=== PATIENT | female | born 1970 | race Caucasian/White ===

== ENCOUNTER 2022-09-05 21:15 | Emergency (ER) | payer MEDICAID ==
[~2022-09-05] VITALS: Ht 154.9 cm; Wt 69.4 kg
--- NOTE | 2022-09-05 22:14 | NUR ---
BIBSELF FROM HOME C/O VAGINAL BLEEDING ON & OFF FOR 4 MONTHS. RLQ AND LOWER BACK PAIN. -N/V. PT AAOX4, PLACED COMFORTABLY IN BED, VITALS CHECKED.
--- NOTE | 2022-09-05 22:30 | NUR ---
URINE COLLECTED AND SENT TO LAB
--- NOTE | 2022-09-05 22:30 | NUR ---
20G IN LEFT FOREARM ESTABLISHED.
--- NOTE | 2022-09-05 22:40 | NUR ---
TRAINING MGR AT BED SIDE
--- NOTE | 2022-09-05 23:04 | NUR ---
U/S TECH AT BEDSIDE
[2022-09-05 23:07] LABS: BASOPHILS # (AUTO) 0.1 K/uL (0.0-0.2); BASOPHILS % (AUTO) 0.8 % (0.0-2.0); EOSINOPHILS % (AUTO) 3.7 % (0.0-6.0); HEMATOCRIT 34 % (33-45); HEMOGLOBIN 10.7 g/dL (11.5-14.8); LYMPHOCYTES # (AUTO) 3.4 K/uL (0.8-4.8); MEAN CORPUSCULAR HGB CONC 32 g/dl (31.0-36.0); MEAN CORPUSCULAR VOLUME 75 fL (82-100); MONOCYTES # (AUTO) 0.5 K/uL (0.1-1.30); MONOCYTES % (AUTO) 5.7 % (2.0-12.0); NEUTROPHILS # (AUTO) 4.7 K/uL (1.8-8.9); NEUTROPHILS % (AUTO) 51.8 % (43.0-81.0); PLATELET COUNT (AUTO) 401 K/uL (150-450); RED BLOOD CELL COUNT(AUTO) 4.56 MIL/uL (4.0-5.2); WHITE BLOOD COUNT (AUTO) 9.1 K/uL (4.3-11.0)
[2022-09-05 23:13] LABS: BILIRUBIN,URINE NEGATIVE (NEGATIVE); LEUKOCYTE ESTERASE ,URINE 1+ (NEGATIVE); NITRITE, URINE NEGATIVE (NEGATIVE); PH,URINE 6.5 (5.0-8.0); PROTEIN,URINE NEGATIVE (NEGATIVE); UGLUCOSE NEGATIVE (NEGATIVE); UROBILINOGEN,URINE 0.2 EU/dL (0.2)
[2022-09-05 23:14] LABS: COLOR,URINE LIGHT YELLOW (YELLOW)
[2022-09-05 23:32] LABS: ALBUMIN 3.9 g/dL (3.4-5.0); BILIRUBIN,TOTAL 0.1 mg/dL (0.2-1.0); CALCIUM, SERUM 9.4 mg/dL (8.5-10.1); CREATININE 0.8 mg/dL (0.6-1.3); POTASSIUM 3.9 mmol/L (3.5-5.1); TOTAL PROTEIN, SERUM 8.5 g/dL (6.4-8.2)
[2022-09-06 00:15] LABS: RBC,URINE 51-80 /HPF (0-2)
[2022-09-06 00:16] LABS: BACTERIA,URINE Few /HPF (None Seen)
[2022-09-06 00:17] LABS: SQUAMOUS EPITHELIAL CELL,UR Moderate /HPF (None Seen)
[2022-09-06 01:08] LABS: EOSINOPHILS % (MANUAL) 1 % (0-4); LYMPHOCYTES % (MANUAL) 37 % (16-48); MONOCYTES % (MANUAL) 7 % (0-11.0); NEUTROPHILS % (MANUAL) 55 (42-76)
[2022-09-06] MEDS ORDERED: IBUPROFEN 600 MG TABLET ONE (02:12)
[2022-09-06] MEDS ORDERED: IBUP-1955 PO (02:14)
[2022-09-06 02:25] VITALS: BP 149/92
--- NOTE | 2022-09-06 02:25 | NUR ---
Patient discharged to home in stable condition. Written and verbal after care instructions given. Patient verbalizes understanding of instruction.IV removed. Catheter intact and site benign. Pressure and 4x4 applied to site. No bleeding noted. Pt ambulatory with a steady gait
== END 2022-09-06 02:26 | disposition home or self-care (01) ==
LOC: ER 21:21
DX: N93.9 Abnormal uterine and vaginal bleeding, unspecified (principal); I10 Essential (primary) hypertension; D64.9 Anemia, unspecified; R93.89 Abnormal findings on diagnostic imaging of other specified body structures
CPT/HCPCS: 36415; 76856-TC; 80048-TC; 80076-TC; 81001; 83690-TC; 84703-TC; 85025-TC; 85730-TC; 87086-TC